=== PATIENT | female | born 1965 | race Caucasian/White ===

== ENCOUNTER 2017-12-31 13:08 | Emergency (ER) | payer BC, MEDICAID, OTHER ==
[~2017-12-31] VITALS: Ht 154.9 cm; Wt 61.2 kg
[2017-12-31 13:30] VITALS: BP 136/90
[2017-12-31] MEDS ORDERED: LIDOCAINE 1% HCL (LOCAL ANESTH.) INJ 20ML MDV IJ ONE (13:45)
[2017-12-31] MEDS ORDERED: TETANUS-DIPTH-ACEL PERTUSSIS 0.5ML SYRG IM ONE (14:00)
== END 2017-12-31 14:18 | disposition home or self-care (01) ==
LOC: ER 13:26
DX: S61.012A Laceration without foreign body of left thumb without damage to nail, initial encounter (principal); F17.210 Nicotine dependence, cigarettes, uncomplicated; X58.XXXA Exposure to other specified factors, initial encounter; Y93.89 Activity, other specified; Y99.8 Other external cause status; Y92.89 Other specified places as the place of occurrence of the external cause
CPT/HCPCS: 12002; 90471; 90715

== ENCOUNTER 2018-01-07 13:02 | Emergency (ER) | payer OTHER ==
[~2018-01-07] VITALS: Ht 154.9 cm; Wt 62.1 kg
[2018-01-07 14:34] VITALS: BP 143/83
== END 2018-01-07 14:57 | disposition home or self-care (01) ==
LOC: EDBD → MERGE 13:02 → ER 13:02 → UNMERGE 13:02 → ER 14:57
DX: S61.012D Laceration without foreign body of left thumb without damage to nail, subsequent encounter (principal); F17.210 Nicotine dependence, cigarettes, uncomplicated; X58.XXXD Exposure to other specified factors, subsequent encounter
CPT/HCPCS: 99281; A6257

== ENCOUNTER 2020-10-13 20:03 | Emergency (ER) | payer MEDICAID, OTHER ==
[~2020-10-13] VITALS: Ht 154.9 cm; Wt 63.5 kg
[2020-10-13 20:30] VITALS: BP 111/79
== END 2020-10-13 23:52 | disposition left against medical advice (07) ==
LOC: ER 20:12
DX: K13.79 Other lesions of oral mucosa (principal); Z53.21 Procedure and treatment not carried out due to patient leaving prior to being seen by health care provider

== ENCOUNTER 2021-12-20 00:16 | Emergency (ER) | payer MEDICAID ==
[~2021-12-20] VITALS: Ht 154.9 cm; Wt 135.0 kg
[2021-12-20 00:16] VITALS: BP 143/89
== END 2021-12-20 05:04 | disposition home or self-care (01) ==
LOC: ER 00:16
DX: S61.211A Laceration without foreign body of left index finger without damage to nail, initial encounter (principal); W25.XXXA Contact with sharp glass, initial encounter; Y93.89 Activity, other specified; Y92.89 Other specified places as the place of occurrence of the external cause; Y99.8 Other external cause status
CPT/HCPCS: 12002